=== PATIENT | male | born 1985 | race African-American/Black ===

== ENCOUNTER 2024-03-20 12:24 | Inpatient (IN) | payer SELFPAY ==
[~2024-03-20] VITALS: Ht 180.3 cm; Wt 108.9 kg
[2024-03-20 12:34] VITALS: O2SAT 96
[2024-03-20] MEDS: ACETAMINOPHEN 325MG TABLET PO ONE (13:26)
[2024-03-20 17:44] LABS: HEMATOCRIT 40.8 % (42.0-52.0); HEMOGLOBIN 13.8 g/dL (14.0-18.0); MEAN CORPUSCULAR HEMOGLOBIN 29.1 pg (28.0-32.0); MEAN CORPUSCULAR HGB CONC 33.7 g/dL (31.0-37.0); MEAN CORPUSCULAR VOLUME 86.3 fL (80.0-94.0); PLATELET 197 x1000/uL (130-400); RED BLOOD CELL COUNT 4.73 mill/uL (4.7-6.1); RED CELL DISTRIBUTION WIDTH 13.2 % (11.6-14.6); WHITE BLOOD COUNT 12.5 x1000/uL (4.5-11.0)
[2024-03-20 17:48] LABS: CHLORIDE 107 mEq/L (98-107); SODIUM 138 mEq/L (136-145)
[2024-03-20 17:49] LABS: CARBON DIOXIDE 24 mEq/L (21-32)
[2024-03-20 17:54] LABS: CREATININE 0.9 mg/dL (0.6-1.3); GLUCOSE 113 mg/dL (70-105); UREA NITROGEN BLOOD 8 mg/dL (9-23)
[2024-03-20 17:56] LABS: ALANINE AMINOTRANSFERASE 33 IU/L (10-49); ALBUMIN 4.4 g/dL (3.2-4.8); ASPARTATE AMINOTRANSFERASE 37 IU/L (<34)
[2024-03-20 17:57] LABS: BILIRUBIN TOTAL 0.6 mg/dL (0.1-1.0); PROTEIN TOTAL 7.3 g/dL (6.0-8.3)
[2024-03-20 18:10] LABS: INR 1.1; PROTHROMBIN TIME 11.8 sec (9.6-11.0)
[2024-03-20] MEDS ORDERED: MORPHINE SULFATE 4 MG/ML INJ (FOR IV/IM USE) IV ONE (18:45)
[2024-03-20] MEDS ORDERED: ONDANSETRON HCL 4MG/2ML INJ IV ONE (18:45)
[2024-03-20] MEDS: SODIUM CHLORIDE 0.9% 1,000 ML IV ONE (19:28)
[2024-03-20] MEDS: ONDANSETRON HCL 4MG/2ML INJ IV NR (22:20)
[2024-03-20] MEDS: MORPHINE SULFATE 4 MG/ML INJ (FOR IV/IM USE) IV NR (22:21)
[2024-03-21] MEDS: IBUPROFEN 400MG TABLET PO SCH (02:13)
[2024-03-21] MEDS: DEXT 5%/0.45% NACL 1000ML 1,000 ML IV SCH (03:30)
[2024-03-21] MEDS ORDERED: ACETAMINOPHEN 325MG TABLET PO PRN (03:30)
[2024-03-21] MEDS ORDERED: CLONIDINE 0.1MG TABLET PO PRN (03:30)
[2024-03-21] MEDS ORDERED: DOCUSATE SODIUM 100MG CAPSULE PO PRN (03:30)
[2024-03-21] MEDS ORDERED: IPRATROPIUM/ALBUTEROL 0.5-3(2.5)MG/3ML NEB HHN PRN (03:30)
[2024-03-21] MEDS ORDERED: ONDANSETRON HCL 4MG/2ML INJ IV PRN (03:30)
[2024-03-21] MEDS ORDERED: NALOXONE HCL 0.4MG/ML VIAL IV PRN (03:45)
[2024-03-21] MEDS: HYDROCODONE/ACETAMINOPHEN 5/325MG TABLET PO PRN (04:17)
[2024-03-21 08:00] VITALS: BP_SYST 129; BP_SYST 140; BP_DIAS 63; BP_DIAS 78; PULSE 60; PULSE 67; RESP 18; RESP 20; TEMP 98.2; TEMP 98.9
[2024-03-21 11:46] LABS: HEMATOCRIT 33.1 % (42.0-52.0); HEMOGLOBIN 11.1 g/dL (14.0-18.0); MEAN CORPUSCULAR HEMOGLOBIN 29.1 pg (28.0-32.0); MEAN CORPUSCULAR HGB CONC 33.7 g/dL (31.0-37.0); MEAN CORPUSCULAR VOLUME 86.4 fL (80.0-94.0); PLATELET 139 x1000/uL (130-400); RED BLOOD CELL COUNT 3.82 mill/uL (4.7-6.1); RED CELL DISTRIBUTION WIDTH 13.1 % (11.6-14.6); WHITE BLOOD COUNT 5.4 x1000/uL (4.5-11.0)
[2024-03-21 12:00] VITALS: BP 140/63; PULSE 67; RESP 20; TEMP 98.2
[2024-03-21 12:11] LABS: CHLORIDE 107 mEq/L (98-107); POTASSIUM 3.3 mEq/L (3.5-5.1); SODIUM 139 mEq/L (136-145)
[2024-03-21 12:12] LABS: CALCIUM 8.2 mg/dL (8.7-10.4); CARBON DIOXIDE 25 mEq/L (21-32)
[2024-03-21 12:17] LABS: CREATININE 0.9 mg/dL (0.6-1.3); GLUCOSE 113 mg/dL (70-105); UREA NITROGEN BLOOD 8 mg/dL (9-23)
[2024-03-21 12:19] LABS: ALANINE AMINOTRANSFERASE 24 IU/L (10-49); ALBUMIN 3.7 g/dL (3.2-4.8); ASPARTATE AMINOTRANSFERASE 35 IU/L (<34); BILIRUBIN TOTAL 0.9 mg/dL (0.1-1.0)
[2024-03-21] MEDS: POTASSIUM CHLORIDE 20MEQ TABLET SR PO NR (13:20)
[2024-03-21 15:53] LABS: *AMPHETAMINES SCREEN URINE NEGATIVE (NEGATIVE)
[2024-03-21 15:54] LABS: *BARBITURATES SCREEN URINE NEGATIVE (NEGATIVE); *BENZODIAZEPINES SCREEN URINE NEGATIVE (NEGATIVE); *COCAINE SCREEN URINE NEGATIVE (NEGATIVE); CANNABINOID URINE SCREEN PRESUMPTIVE POSITIVE (NEGATIVE); ECSTASY MDMA SCREEN URINE NEGATIVE (NEGATIVE); METHADONE URINE SCREEN NEGATIVE (NEGATIVE); OPIATES URINE SCREEN PRESUMPTIVE POSITIVE (NEGATIVE); PHENCYCLIDINE URINE SCREEN NEGATIVE (NEGATIVE)
[2024-03-21 15:55] LABS: CLARITY URINE CLEAR (CLEAR); COLOR URINE YELLOW (YELLOW); GLUCOSE URINE NEGATIVE (NEGATIVE); KETONES URINE TRACE (NEGATIVE); LEUKOCYTE ESTERASE URINE NEGATIVE (NEGATIVE); NITRITE URINE NEGATIVE (NEGATIVE); OCCULT BLOOD URINE NEGATIVE (NEGATIVE); PH URINE 6.5 (4.5-8.0); PROTEIN URINE NEGATIVE (NEGATIVE); SPECIFIC GRAVITY URINE 1.012 (1.005-1.030)
[2024-03-21 16:00] VITALS: BP 130/70; PULSE 66; RESP 17; TEMP 98.1
[2024-03-21 20:00] VITALS: BP 128/70; PULSE 72; RESP 20; TEMP 97.9
[2024-03-22] VITALS: BP 132/74; PULSE 80; RESP 18; TEMP 98.2
[2024-03-22 04:00] VITALS: BP 128/76; PULSE 84; RESP 20; TEMP 98.8
[2024-03-22 08:00] VITALS: BP 141/83; PULSE 72; RESP 20; TEMP 98.1
[2024-03-22 09:33] LABS: CHLORIDE 107 mEq/L (98-107); HEMATOCRIT 31.2 % (42.0-52.0); HEMOGLOBIN 10.4 g/dL (14.0-18.0); MEAN CORPUSCULAR HEMOGLOBIN 29.1 pg (28.0-32.0); MEAN CORPUSCULAR HGB CONC 33.3 g/dL (31.0-37.0); MEAN CORPUSCULAR VOLUME 87.3 fL (80.0-94.0); PLATELET 140 x1000/uL (130-400); RED BLOOD CELL COUNT 3.57 mill/uL (4.7-6.1); RED CELL DISTRIBUTION WIDTH 13.1 % (11.6-14.6); SODIUM 138 mEq/L (136-145); WHITE BLOOD COUNT 7.1 x1000/uL (4.5-11.0)
[2024-03-22 09:34] LABS: CALCIUM 8.4 mg/dL (8.7-10.4); CARBON DIOXIDE 26 mEq/L (21-32)
[2024-03-22 09:39] LABS: CREATININE 0.8 mg/dL (0.6-1.3); GLUCOSE 108 mg/dL (70-105); UREA NITROGEN BLOOD 5 mg/dL (9-23)
[2024-03-22 09:41] LABS: ALANINE AMINOTRANSFERASE 21 IU/L (10-49); ALBUMIN 3.9 g/dL (3.2-4.8); ASPARTATE AMINOTRANSFERASE 35 IU/L (<34)
[2024-03-22 09:42] LABS: BILIRUBIN TOTAL 0.6 mg/dL (0.1-1.0); PROTEIN TOTAL 6.2 g/dL (6.0-8.3)
[2024-03-22] MEDS: ACETAMINOPHEN 325MG TABLET PO PRN (10:08)
[2024-03-22 12:00] VITALS: BP 155/81; PULSE 79; RESP 21; TEMP 97.9
[2024-03-22 16:00] VITALS: BP 135/96; PULSE 109; RESP 20; TEMP 99
[2024-03-22 20:00] VITALS: BP 148/84; PULSE 88; RESP 20; TEMP 98.7
[2024-03-23] VITALS: BP 138/82; PULSE 77; RESP 20; TEMP 98.1
[2024-03-23 04:00] VITALS: BP 129/75; PULSE 80; RESP 20; TEMP 98
[2024-03-23 07:07] LABS: HEMATOCRIT 30.5 % (42.0-52.0); HEMOGLOBIN 10.3 g/dL (14.0-18.0); MEAN CORPUSCULAR HEMOGLOBIN 29.2 pg (28.0-32.0); MEAN CORPUSCULAR HGB CONC 33.9 g/dL (31.0-37.0); MEAN CORPUSCULAR VOLUME 86.3 fL (80.0-94.0); PLATELET 143 x1000/uL (130-400); RED BLOOD CELL COUNT 3.53 mill/uL (4.7-6.1); RED CELL DISTRIBUTION WIDTH 12.9 % (11.6-14.6); WHITE BLOOD COUNT 8.5 x1000/uL (4.5-11.0)
[2024-03-23 07:16] LABS: CHLORIDE 105 mEq/L (98-107); POTASSIUM 3.8 mEq/L (3.5-5.1); SODIUM 138 mEq/L (136-145)
[2024-03-23 07:17] LABS: CALCIUM 8.8 mg/dL (8.7-10.4); CARBON DIOXIDE 23 mEq/L (21-32)
[2024-03-23 07:22] LABS: CREATININE 0.8 mg/dL (0.6-1.3); GLUCOSE 103 mg/dL (70-105); UREA NITROGEN BLOOD 7 mg/dL (9-23)
[2024-03-23 07:23] LABS: ALANINE AMINOTRANSFERASE 23 IU/L (10-49)
[2024-03-23 07:24] LABS: ALBUMIN 4.1 g/dL (3.2-4.8); ASPARTATE AMINOTRANSFERASE 38 IU/L (<34)
[2024-03-23 07:25] LABS: BILIRUBIN TOTAL 0.6 mg/dL (0.1-1.0); PROTEIN TOTAL 6.8 g/dL (6.0-8.3)
[2024-03-23 08:00] VITALS: BP 137/80; PULSE 73; RESP 18; TEMP 96.9
[2024-03-23] MEDS: ENOXAPARIN 40MG/0.4ML SYR SUBCUT SCH (09:17)
[2024-03-23 12:00] VITALS: BP 130/78; PULSE 92; RESP 18; TEMP 97
[2024-03-23] MEDS ORDERED: VANCOMYCIN 2,000 MG in DEXT 5% WATER 500 ML IV NR (15:00)
[2024-03-23 16:00] VITALS: BP 128/67; PULSE 98; RESP 18; TEMP 98
[2024-03-23] MEDS: CEFEPIME 1GM/50ML 50 ML IV SCH (16:37)
[2024-03-23] MEDS: MORPHINE SULFATE 2 MG/ML INJ (NOT FOR IM USE) IV PRN (17:08)
[2024-03-23 20:00] VITALS: BP 152/86; PULSE 118; RESP 19; TEMP 100.6
[2024-03-23] MEDS: ENOXAPARIN 30MG/0.3ML SYR SUBCUT SCH (20:07)
[2024-03-23] MEDS: CEFAZOLIN 1000MG PREMIX 50 ML IV SCH (20:10)
[2024-03-23] MEDS ORDERED: VANCOMYCIN 1GM/200ML PMX (BAXTER) IV SCH (22:00)
[2024-03-23] MEDS: MORPHINE SULFATE 2 MG/ML INJ (NOT FOR IM USE) IV NR (23:21)
[2024-03-24] VITALS: BP 116/63; PULSE 98; RESP 19; TEMP 100.6
[2024-03-24] MEDS ORDERED: CEFEPIME 1GM IN DEXT 5% 50ML IV SCH (01:00)
[2024-03-24 04:00] VITALS: BP 119/84; PULSE 98; RESP 20; TEMP 99.9
[2024-03-24 08:00] VITALS: BP 146/67; PULSE 98; RESP 18; TEMP 97
[2024-03-24 10:36] LABS: HEMATOCRIT 29.6 % (42.0-52.0); MEAN CORPUSCULAR HEMOGLOBIN 29.4 pg (28.0-32.0); MEAN CORPUSCULAR HGB CONC 33.7 g/dL (31.0-37.0); MEAN CORPUSCULAR VOLUME 87.2 fL (80.0-94.0); PLATELET 170 x1000/uL (130-400); RED BLOOD CELL COUNT 3.39 mill/uL (4.7-6.1); RED CELL DISTRIBUTION WIDTH 12.9 % (11.6-14.6); WHITE BLOOD COUNT 10.1 x1000/uL (4.5-11.0)
[2024-03-24 11:06] LABS: CHLORIDE 102 mEq/L (98-107); POTASSIUM 3.9 mEq/L (3.5-5.1); SODIUM 133 mEq/L (136-145)
[2024-03-24 11:07] LABS: CARBON DIOXIDE 24 mEq/L (21-32)
[2024-03-24 11:08] LABS: CALCIUM 8.7 mg/dL (8.7-10.4)
[2024-03-24 11:12] LABS: CREATININE 0.8 mg/dL (0.6-1.3); GLUCOSE 111 mg/dL (70-105)
[2024-03-24 11:13] LABS: UREA NITROGEN BLOOD 8 mg/dL (9-23)
[2024-03-24 11:14] LABS: ALANINE AMINOTRANSFERASE 28 IU/L (10-49); ASPARTATE AMINOTRANSFERASE 33 IU/L (<34)
[2024-03-24 11:15] LABS: BILIRUBIN TOTAL 0.8 mg/dL (0.1-1.0); PROTEIN TOTAL 6.4 g/dL (6.0-8.3)
[2024-03-24 12:00] VITALS: BP 120/70; PULSE 96; RESP 18; TEMP 97.2
[2024-03-24 16:00] VITALS: BP 132/76; PULSE 96; RESP 18; TEMP 97.7
[2024-03-24 16:03] VITALS: BP 133/68; PULSE 78; RESP 18
== END 2024-03-24 18:42 | disposition home or self-care (01) | DRG 342 ==
LOC: ER 12:24 → 5WST 03-21 01:32 → EDBEDREQSVC 03-21 08:05 → 7EST 03-21 11:24
PROVIDERS: ADMIT Preventive Medicine Clinical Informatics; ATTEND Preventive Medicine Clinical Informatics
DX: S82.141A Displaced bicondylar fracture of right tibia, initial encounter for closed fracture (principal); M25.061 Hemarthrosis, right knee; D72.829 Elevated white blood cell count, unspecified; V00.148A Other scooter (nonmotorized) accident, initial encounter; Y93.89 Activity, other specified; Y92.89 Other specified places as the place of occurrence of the external cause; Y99.8 Other external cause status
CPT/HCPCS: 36415; 73560; 73590; 73620; 80053; 80305; 81003; 85027; 86850; 86900; 93923; 93970; 99291; C1893; J0690; J0692; J1650; J2270; J2405; J3370; J7030; J7060